=== PATIENT | male | born 1970 | race Caucasian/White ===

== ENCOUNTER 2020-06-18 06:32 | Day surgery (SDC) | payer OTHER, SELFPAY ==
[2020-06-11 13:51] VITALS: BMI 23.1
--- NOTE | 2020-06-17 10:23 | HO.ANESPROP2 ---
Documented by User: Elisa Barrios 06/17/20 10:25 HPI - Anesthesia Eval Consult details Narrative: 49yo M for Colonoscopy [facility] Past Medical History Medical History History of asthma Social History Social History Smoking Status: Never smoker Use of substances other than those prescribed or required for medical reasons: No Have you been hit, kicked, punched, or otherwise hurt by someone within the past year? If so, by whom?: No Advance Directives: Yes Advance Directives Information Provided: No Advance Directives on File: No Recently lost weight without trying: No Meds Allergies Allergy/AdvReac Type Severity Reaction Status Date / Time No Known Allergies Allergy Verified 06/11/20 13:50 Home Medications Medication Instructions Recorded Confirmed Type No Known Home Meds 06/11/20 06/11/20 History Exam Exam Date and Time: June 17, 2020 1023 Height,Weight and Vital Signs: Height 6 ft 2 in Weight 81.647 kg Pertinent Lab Results Pertinent Lab Results: Laboratory Tests 03/03/20 03/03/20 11:06 11:06 WBC 6.1 Hgb 16.9 Hct 50.6 Plt Count 214 Sodium 141 Potassium 4.7 Chloride 104 BUN 19 H Creatinine 0.90 Assessment and Plan Assessment Anesthesia Assessment: Chart Reviewed Documented by User: Marium Dowling 06/18/20 07:29 [facility] Past Medical History Medical History History of asthma Family History Family history of problems with anesthesia: No Surgical History History of Problems with Anesthesia: No Social History Social History Smoking Status: Never smoker Use of substances other than those prescribed or required for medical reasons: No Have you been hit, kicked, punched, or otherwise hurt by someone within the past year? If so, by whom?: No Advance Directives: Yes Advance Directives Information Provided: No Advance Directives on File: No Recently lost weight without trying: No Meds Allergies Allergy/AdvReac Type Severity Reaction Status Date / Time No Known Allergies Allergy Verified 06/11/20 13:50 Home Medications Medication Instructions Recorded Confirmed Type No Known Home Meds 06/11/20 06/11/20 History Exam Height,Weight and Vital Signs: Vital Signs Temp Pulse Resp BP Pulse Ox 06/18/20 06:47 97.9 F 99 18 152/99 H 99 Airway Mallampati Class: II TM Dist: >3cm Neck ROM: Full Loose/Missing/Broken Teeth: No Heart: CTAB Lungs: RRR Assessment and Plan Assessment Anesthesia Assessment: Anesthesia Plan Discussed and Chart Reviewed Final Anesthetic Review NPO: Yes ASA Class: II Final Preanesthetic Review: No Changes in Pt Med Stat, Meds/Allgs Chart Reviewed, Consent Obtained/Reviewed and Anes Risks/Benef Reviewed Patient Risk: Low Procedure Risk: Low Anesthetic Plan Anesthetic Plan: MAC: Disposition: Standard PACU
[2020-06-18 06:47] VITALS: BP 152/99; PULSE 99; RESP 18; TEMP 36.6; O2SAT 99
[2020-06-18] MEDS: Lactated Ringers 1,000 ML 100 ML IVCONT (07:04)
[2020-06-18 07:38] VITALS: BP 144/79; PULSE 73; RESP 16; TEMP 36.2; O2SAT 97
--- NOTE | 2020-06-18 07:50 | MHC.SHP ---
Pre-Procedural Eval Section B Chief Complaint: RECTAL BLEEDING Details of Present Illness: Colon cancer screening Relevant Family History (Specify if Yes): No Relevant Social History: None Present Medications: None Medical History: No relevant PMH History of Previous Operations: No relevant previous surgery Allergies: Allergies Allergy/AdvReac Type Severity Reaction Status Date / Time No Known Allergies Allergy Verified 06/11/20 13:50 Review of Systems Sugical H&P ROS: Negative: Constitution, Cardiovascular, Respiratory, Psychiatric, Gastrointestinal and Genitourinary Review of Systems Comment: No interim illnesses Exam Surgical H&P Exam: Normal: HEENT, Normal: Heart, Normal: Lungs, Normal: Extremities and Normal: Abdomen Exam Comment: Normal Plan Diagnosis/Plan: Unchanged Patient has been examined and remains a candidate for the planned procedure
--- NOTE | 2020-06-18 07:52 | PM.PROC ---
Brief Operative Note Date of procedure: 06/18/20 Pre-op diagnosis: Colon Cancer Screening--distant episode of rectal bleeding Post-op diagnosis: other (1+ Internal Hemorrhoids, Minor Diverticulosis-Sigmoid) Procedure: Colonoscopy Anesthesia: MAC (JYOTHI Escobedo) Surgeon: Ashleigh Person Estimated blood loss (mL): 0 Pathology: none sent Condition: stable Disposition: PACU
[2020-06-18 08:25] VITALS: BP 103/65; PULSE 81; RESP 12; TEMP 36.6; O2SAT 97
[2020-06-18 08:40] VITALS: BP 100/68; PULSE 76; RESP 16; O2SAT 97
[2020-06-18 08:55] VITALS: BP 107/67; PULSE 67; RESP 12; O2SAT 96
[2020-06-18 09:09] VITALS: BP 118/83; PULSE 81; RESP 18; TEMP 36.1; O2SAT 98
--- NOTE | 2020-06-18 09:39 | HO.POSTANES ---
Post Anesthesia Evaluation Post Anesthesia Evaluation Vital Signs: Vital Signs Temp Pulse Resp BP Pulse Ox 06/18/20 09:09 97.0 F 81 18 118/83 98 06/18/20 08:55 67 12 107/67 96 06/18/20 08:40 76 16 100/68 97 06/18/20 08:25 97.8 F 81 12 103/65 97 06/18/20 07:38 97.1 F 73 16 144/79 H 97 06/18/20 06:47 97.9 F 99 18 152/99 H 99 Anesthesia: Monitored Mental Status: Awake Pain Control: Satisfactory Nausea/Vomiting: None Hydration: Adequate Anesthesia-Related Issues: No Anes. Related Issues
--- NOTE | 2020-06-19 19:47 | OP_ITS ---
SURGEON: Ashleigh Person MD PREOPERATIVE DIAGNOSIS: Colon cancer screening, mild infrequent episodes of minor rectal bleeding. No known family history of colon cancer, polyps, etc. POSTOPERATIVE DIAGNOSIS: Minor diverticulosis localized to rectosigmoid, 1+ internal hemorrhoids. PROCEDURE PERFORMED: Colonoscopy. ESTIMATED BLOOD LOSS: No blood loss. COMPLICATIONS: No complications. ANESTHESIA: Monitored. ANESTHESIOLOGIST: Tr Yost CRNA. ASSISTANTS:NONE SPECIMENS: Specimens removed; none. CLAY SHOP SUPERVISOR: Dr. Person. FINDINGS: Digital rectal exam revealed prostate to be slightly firm. No nodularity was appreciated. Sphincter tone was normal. Video colonoscope was introduced without difficulty. It was navigated into the rectum and into the rectosigmoid. There were few small diverticula present. Scope continued through the proximal sigmoid, descending, transverse, ascending colon down into the cecal cap. The prep was excellent. Appendiceal orifice was seen. Ileocecal valve was well seen. No mucosal abnormalities were appreciated. Slow rotational views on withdrawal of the scope, again no mucosal lesions were seen. Once in the rectum, there were prominent internal hemorrhoidal vessels. Retroflex view in the rectum showed 1+ internal hemorrhoids. No active excoriation or friability noted. Anorectal verge was clear. PLAN: Current recommendation is to repeat asymptomatic screening in this patient is 10 years. The patient reminded that any intercurrent iron-deficiency anemia or episodes of rectal bleeding need to be evaluated at the time of their presentation. LINUX UNIX SYSTEM ADMINISTRATOR: No minister assistant. GRAFT OR IMPLANTS: No grafts or implants. CONDITION: Postprocedure, stable. Ashleigh Person MD MEN/MODL / [phone] [facility]
== END 2020-06-18 09:42 | disposition home or self-care (01) ==
PROVIDERS: Visit Provider Internal Medicine Gastroenterology
PROC: 0DJD8ZZ Inspection of Lower Intestinal Tract, Via Natural or Artificial Opening Endoscopic (ICD-10-PCS; CPT 45378; principal; 2020-06-18 07:30)
DX: Z12.11 Encounter for screening for malignant neoplasm of colon (principal); K57.30 Diverticulosis of large intestine without perforation or abscess without bleeding; K64.8 Other hemorrhoids
CPT/HCPCS: 45378; J2250

== ENCOUNTER 2020-08-02 12:22 | Outpatient (REF) | payer OTHER, SELFPAY ==
[2020-08-02 14:01] LABS: COVID-19 Test Negative (Negative)
== END 2020-08-02 12:23 | disposition home or self-care (01) ==
LOC: HO.EMPCOV 12:22
PROVIDERS: Visit Provider Internal Medicine
DX: Z20.828 Contact with and (suspected) exposure to other viral communicable diseases (principal)
CPT/HCPCS: 87635; C9803

== ENCOUNTER 2020-08-06 09:21 | Outpatient (REF) | payer OTHER, SELFPAY ==
[2020-08-06 09:43] LABS: COVID-19 Test Negative (Negative)
== END 2020-08-06 09:22 | disposition home or self-care (01) ==
LOC: HO.EMPCOV 09:21
PROVIDERS: Visit Provider Internal Medicine
DX: Z20.828 Contact with and (suspected) exposure to other viral communicable diseases (principal)
CPT/HCPCS: 87635; C9803

== ENCOUNTER 2020-10-20 12:58 | Outpatient (REF) | payer OTHER, SELFPAY ==
[2020-10-20 13:31] LABS: COVID-19 Test Negative (Negative)
== END 2020-10-20 12:59 | disposition home or self-care (01) ==
LOC: HO.EMPCOV 12:58
PROVIDERS: Visit Provider Internal Medicine
DX: Z20.822 Contact with and (suspected) exposure to COVID-19 (principal)
CPT/HCPCS: 36415; 87635; C9803

== ENCOUNTER 2020-10-26 07:59 | Outpatient (REF) | payer OTHER, SELFPAY ==
[2020-10-26 08:38] LABS: COVID-19 Test Negative (Negative); IDNOW Serial# 55D5AD1C
== END 2020-10-26 08:00 | disposition home or self-care (01) ==
LOC: HO.EMPCOV 07:59
PROVIDERS: Visit Provider Internal Medicine
DX: Z20.822 Contact with and (suspected) exposure to COVID-19 (principal)
CPT/HCPCS: 36415; 87635; C9803

== ENCOUNTER 2022-12-06 07:21 | Outpatient (REF) | payer OTHER, SELFPAY ==
[2022-12-06 08:22] LABS: Hemoglobin 16.4 g/dl (14.0-18.0); Mean Corpuscular HGB Conc 33.5 g/dl (31.0-36.0); Mean Corpuscular Hemoglobin 31.1 pg (27.0-33.0); Mean Corpuscular Volume 92.8 fL (80.0-98.0); Mean Platelet Volume 10.8 fL (9.4-12.4); Platelet Count 194 X10*3/uL (160-400); Red Blood Count 5.28 X10*6/uL (4.60-5.80); Red Cell Distribution Width 12.6 % (11.0-16.0); White Blood Count 5.4 X10*3/uL (4.8-10.8)
[2022-12-06 08:41] LABS: Alanine Aminotransferase 22 U/L (0-40); Albumin Level 4.3 g/dL (3.5-5.0); Alkaline Phosphatase 56 U/L (39-117); Anion Gap 15 (12-20); Aspartate Amino Transferase 20 U/L (5-37); Bilirubin Direct 0.2 mg/dL (0.0-0.5); Bilirubin Total 0.6 mg/dL (0.0-1.0); Blood Urea Nitrogen 23 mg/dL (9-16); Calcium 9.4 mg/dL (8.4-10.2); Carbon Dioxide 26 mmol/L (22-29); Chloride 107 mmol/L (96-108); Cholesterol 218 mg/dL; Estimated Glomerular Filt Rate > 60; Glucose Fasting 92 mg/dL (60-99); HDL Cholesterol 55 mg/dL; Potassium 4.6 mmol/L (3.3-5.1); Sodium 143 mmol/L (135-145); Total Protein 6.3 g/dL (6.5-8.0); Triglycerides 76 mg/dL
[2022-12-06 08:47] LABS: TSH reflex Free T4 2.17 uIU/mL (0.32-4.0)
[2022-12-08 02:40] LABS: LDL Cholesterol Direct 142 mg/dL (<100)
== END 2022-12-06 07:22 | disposition home or self-care (01) ==
LOC: HO.LAB 07:21
PROVIDERS: Visit Provider Obstetrics & Gynecology
DX: Z13.220 Encounter for screening for lipoid disorders (principal); Z20.2 Contact with and (suspected) exposure to infections with a predominantly sexual mode of transmission
CPT/HCPCS: 36415; 80048; 80076; 82465; 83718; 83721; 84443; 84478; 85027

== ENCOUNTER 2023-07-01 13:17 | Emergency (ER) | payer OTHER, SELFPAY ==
--- NOTE | ~2023-07-01 | CT_ITS ---
EXAMINATION: CT ABDOMEN AND PELVIS WITH CONTRAST CLINICAL INFORMATION: Rectal and pelvic pain with fevers. Retention. COMPARISON: None available. TECHNIQUE: Multidetector volumetric images were obtained from the superior aspect of the liver through the pubic symphysis following administration 85 mL of Omnipaque 350 intravenous contrast. Sagittal and coronal reformatted images were obtained on the technologist's workstation. Oral contrast: No This CT examination was performed using dose optimization techniques as appropriate, variously including the following: *Automated exposure control *Adjustment of mA and/or kV according to patient size (this includes techniques or standardized protocols for targeted exams where dose is matched to indication/reason for exam; i.e. extremities or head) *Use of iterative reconstruction technique DLP: 495 mGy-cm FINDINGS: LUNG BASES: There is bilateral compressive atelectasis. Heart size is normal. LIVER, GALLBLADDER, AND BILIARY TREE: The liver is normal in size, shape, and attenuation. There is a 4 mm hypodensity in the posterior segment right upper lobes. No additional lesions seen. The gallbladder is unremarkable with no evidence of radiopaque gallstones, gallbladder wall thickening, or obvious pericholecystic inflammatory changes. PANCREAS: Unremarkable. SPLEEN: Unremarkable. ADRENAL GLANDS: Unremarkable. KIDNEYS AND URETERS: The kidneys are normal in size, shape, and attenuation. No hydronephrosis, hydroureter, or calculi seen. No perinephric stranding. BLADDER: There is a Elizondo's catheter in the bladder with iatrogenic air. Mild bladder wall thickening is seen. GASTROINTESTINAL TRACT: Moderate stool, gas and diverticuli seen throughout the colon without distention. The small bowel loops is normal caliber. Appendix is not visualized with certainty. The stomach is distended with recently ingested food. ABDOMINAL WALL: Unremarkable. LYMPH NODES: No abnormal size lymph nodes and retroperitoneal mass. VASCULAR: Unremarkable. PELVIC VISCERA: The prostate gland is significantly enlarged extending into the base of bladder. No abnormality seen in the rectum and the perirectal space. OSSEOUS STRUCTURES: Mild degenerative disc changes L3-L4 disc: Mild ventral spondylosis L2-L3 and L3-L4 disc level. CT/CT abdomen pelvis w IV con IMPRESSION: Moderate to significant prostate enlargement with bladder wall thickening. There is a Elizondo's catheter in bladder with gas from catheter insertion. Colonic diverticulosis without diverticulitis. Probable small cyst right hepatic lobe with moderate to significant constipation without distention. Fleischner guidelines were followed.
[2023-07-01 13:21] VITALS: BP 140/80; PULSE 106; RESP 16; TEMP 36.8; O2SAT 98; BMI 25.4
--- NOTE | 2023-07-01 13:44 | ED.MALEGU ---
HPI - Male Genitourinary General Chief complaint: Urogenital-Male Stated complaint: urine problem Time Seen by Provider: 07/01/23 13:19 Source: patient Mode of arrival: ambulatory Limitations: no limitations History of Present Illness HPI Narrative: 52 yo male no sig PMH has had symptoms of decreased flow and hesistancy for a few years but no PSA done on Sunday it became worse with fevers > 38.4, myalgias and body aches. He put himself on levofloxacin 500mg daily starting sunday and took a dose today as well. He has not had a fever since yesterday. He has not been able to urinate much since 4am. His body otherwise feels better but he notes he has rectal pain and fullness/discomfort when sitting. He has never had a catheter before. MD Complaint: other (retention) Onset (ago): day(s) (2) Duration: progressively worsening Severity: severe Quality: aching and dull Relieving factors: urination Exacerbating factors: movement Context: other (chronic BPH symptoms left untreated) Associated symptoms: Reports fever Related Data Previous Rx's Medication Instructions Recorded levofloxacin 500 mg tablet 500 mg PO DAILY 4 weeks #28 tabs 07/01/23 tamsulosin 0.4 mg capsule 0.4 mg PO DAILY 10 days #10 caps 07/01/23 Allergies Allergy/AdvReac Type Severity Reaction Status Date / Time No Known Allergies Allergy Verified 06/11/20 13:50 Review of Systems Review of Systems: Constitutional : pos Fever, pos Chills ENT/Mouth : No sore throat Eyes: No Eye Pain, No Swelling, No Redness Cardiovascular : No Chest Pain, No SOB Respiratory : No Cough, No Sputum, No Wheezing Gastrointestinal : no Nausea, no Vomiting, No Diarrhea, positive abdominal pain Genitourinary : positive Dysuria, no urinary frequency, positive Hematuria, positive suprapubic pain, positive hesitancy Musculoskeletal : No joint pain, No Myalgias Skin : No Skin Lesions, No rash Neuro : No Weakness, No Numbness, No Headache Psych : No Anxiety/Panic, No Depression All other systems reviewed and are negative [facility] Past Medical History Attestation statement: The following information was validated with the patient. Medical History History of asthma Social History Social History (Updated 07/01/23 @ 13:53 by Taryn Fowler DO) Patient Tobacco Use Status: Never used Tobacco Smoked in Last 30 Days: No Use of substances other than those prescribed or required for medical reasons: No Advance Directives: No Physical Exam Vital Signs: Vital Signs: Last Vital Signs Temp 98.2 F 07/01/23 13:21 Pulse 106 H 07/01/23 13:21 Resp 16 07/01/23 13:21 BP 140/80 H 07/01/23 13:21 Pulse Ox 98 07/01/23 13:21 O2 Del Method Room Air 07/01/23 13:21 BMI result Body Mass Index 25.4 Appearance: Alert. Oriented X3. No acute distress. Eyes: Pupils equal, round and reactive to light. ENT: Pharynx normal. Neck: Normal inspection. Neck supple. CVS: Normal heart rate and rhythm. Pulses normal. Respiratory: No respiratory distress. Breath sounds normal. Abdomen: Soft and moderate ttp along suprapubic area Skin: Skin warm and dry. Normal skin color. Normal skin turgor. Extremities: No lower extremity edema. No calf ttp Neuro: Oriented X 3. No motor deficit. No sensory deficit. Course Course Course Narrative: signed out to Dr. Moreno pending CT scan Reevaluation(s) Reevaluation #1: discussed with Dr. Javed - 2 weeks catheter, flomax, 2 weeks of antibiotics. Medications Administered Discontinued Medications Generic Name Dose Route Start Last Admin Trade Name Freq PRN Reason Stop Dose Admin Sodium Chloride 1,000 mls @ 999 mls/hr 07/01/23 13:45 07/01/23 15:51 Ns IV 07/01/23 14:45 Infused .Q1H1M JOY Infusion Iohexol 80 ml 07/01/23 14:44 07/01/23 14:44 Iohexol 350 Mg/Ml 100 Ml Infus..Btl IV 07/01/23 14:45 80 ml ONCE ONE Administration Lidocaine HCl 10 ml 07/01/23 13:25 07/01/23 13:58 Lidocaine Hcl 2 % Urojet 10 Ml Jel.Pf.Gabe TOPICAL 07/01/23 13:26 10 ml ONCE ONE Administration Medical Decision Making Medical Decision Making MDM Narrative: 52 yo male with PMH of untreated BPH symptoms here with c/o retention since 4am and fevers since Sunday and dysuria - at this time no fevers since yesterday and he took oral levofloxacin this AM I am going to obtain labs, cultures and CT scan to look for mass/prostatic abscess. Possible discussion with urology as well. Differential Diagnosis Differential Diagnoses: The differential diagnosis associated with the presentation includes BPH, mass, UTI, prostatitis, prostatic abscess Admission/Observation Consideration of admission/observation: Escalation of care including admission/observation considered not toxic, tolerating PO can be managed as outpatient Consult Healthcare Provider Management of the patient was discussed with: Targeting Acquisition Officer (urology Dr. Javed ) Lab Data MDM Lab Attestation statement: I reviewed the patient's lab results. 07/01/23 13:56 07/01/23 13:56 Labs: Lab Results 07/01/23 07/01/23 07/01/23 Range/Units 13:56 14:30 15:36 WBC 7.3 (4.8-10.8) X10*3/uL RBC 4.65 (4.60-5.80) X10*6/uL Hgb 14.6 (14.0-18.0) g/dl Hct 42.1 (42.0-52.0) % MCV 90.5 (80.0-98.0) fL MCH 31.4 (27.0-33.0) pg MCHC 34.7 (31.0-36.0) g/dl RDW 13.1 (11.0-16.0) % Plt Count 115 L D (160-400) X10*3/uL MPV 10.8 (9.4-12.4) fL Immature Gran % (Auto) 0.7 H (0.0-0.4) % Neut % (Auto) 84.1 H (45-73) % Lymph % (Auto) 5.3 L (20-40) % Yancey % (Auto) 9.8 (2-11) % Eos % (Auto) 0.0 (0-4) % Baso % (Auto) 0.1 (0-2) % Lymph # (Auto) 0.4 L (1.2-4.9) X10*3/uL Yancey # (Auto) 0.7 (0.1-1.2) X10*3/uL Eos # (Auto) 0.0 (0.0-0.4) X10*3/uL Baso # (Auto) 0.0 (0.0-0.2) X10*3/uL Abs Immat Gran (auto) 0.05 H (0.00-0.03) X10*3/uL Absolute Neuts (auto) 6.2 (2.0-8.3) x10*3/uL Absolute Nucleated RBC 0.000 (0.0-0.012) X10*3/uL Nucleated RBC % (auto) 0.0 (0.0-0.2) /100WBC Sodium 133 L (135-145) mmol/L Potassium 3.5 D (3.3-5.1) mmol/L Chloride 100 (96-108) mmol/L Carbon Dioxide 23 (22-29) mmol/L Anion Gap 14 (12-20) BUN 17 H (9-16) mg/dL Creatinine 0.96 (0.5-1.4) mg/dL Estim Creat Clear Calc 100.5 Estimated GFR > 60 Random Glucose 123 H (60-115) mg/dL Lactic Acid 1.0 (0.5-2.0) mmol/L Calcium 9.5 (8.4-10.2) mg/dL Magnesium 1.6 (1.6-2.6) mg/dL Total Bilirubin 0.7 (0.0-1.0) mg/dL Direct Bilirubin 0.3 (0.0-0.5) mg/dL AST 62 H (5-37) U/L ALT 79 H (0-40) U/L Alkaline Phosphatase 58 (39-117) U/L Total Protein 6.7 (6.5-8.0) g/dL Albumin 3.8 (3.5-5.0) g/dL PSA Screen 82.49 H (<0.05-4.0) ng/mL Urine Color Yellow Urine Appearance Clear Urine pH 6.0 (5.0-9.0) Ur Specific [place] 1.015 (1.005-1.025) Urine Protein Trace (Neg-Trace) mg/dL Urine Glucose (UA) Negative (Negative) mg/dL Urine Ketones Trace (Negative) mg/dL Urine Blood Large (3+) H (Negative) Urine Nitrite Negative (Negative) Ur Leukocyte Esterase Negative (Negative) Urine RBC >20 H (0-2) /HPF Urine WBC 0-5 (0-5) /HPF Ur Squamous Epith Cells 0-2 (0-2) /HPF Urine Bacteria None Seen (None Seen) Hyaline Casts 0-2 (0-2) /LPF COVID-19 (JOSH) Negative (Negative) COVID-19 Clin Com See Note Independent Interpretation I performed an independent interpretation of an: CT Scan (no prostatic abscess but enlarged) Radiology Impression Discussion of test interpretation with radiology: I have reviewed the radiologist's reading. Independent Historian Clinical information obtained from an independent historian. History obtained from or confirmed by: Spouse Prescription Management I considered prescription management with: Antibiotic and Other Discharge Plan Discharge Clinical Impression: Acute retention of urine, Acute prostatitis, Elevated liver enzymes Patient Disposition: Home, Self-Care Instructions: Prostatitis (ED), Urinary Retention in Men (ED), Elizondo Catheter Placement and Care (ED) Additional Instructions: remember no working out while on levofloxacin and 5 days after. repeat CBC and LFTs in 2 days. return for fevers, vomiting, worsening pain, clogged catheter. avoid aspirin at this time. while on tamsulosin make sure you are not feeling faint or dizzy. call Dr. Javed's office tomorrow he is expecting you to call. Prescriptions: New levofloxacin 500 mg tablet 500 mg PO DAILY 28 Days Qty: 28 0RF tamsulosin 0.4 mg capsule 0.4 mg PO DAILY 10 Days Qty: 10 0RF Referrals: Dakotah Javed MD [Physician] - (call tomorrow) Stand Alone Forms: Work/School Release
[2023-07-01] MEDS: 0.9 % Sodium Chloride 1,000 ML 999 ML IV (13:58)
[2023-07-01] MEDS: Lidocaine HCl 2 % Urojet 10 ML JEL.PF.APP TOPICAL (13:58)
[2023-07-01 14:03] LABS: Basophils Percent Auto 0.1 % (0-2); PLT CLUMP 1; Red Cell Distribution Width 13.1 % (11.0-16.0); SCAN SMEAR FLAG 1
[2023-07-01 14:05] LABS: Hematocrit 42.1 % (42.0-52.0); Hemoglobin 14.6 g/dl (14.0-18.0); Imm Gran Abs Auto 0.05 X10*3/uL (0.00-0.03); Imm Gran Pct Auto 0.7 % (0.0-0.4); Lymphocytes Absolute Auto 0.4 X10*3/uL (1.2-4.9); Lymphocytes Percent Auto 5.3 % (20-40); Mean Corpuscular HGB Conc 34.7 g/dl (31.0-36.0); Mean Corpuscular Hemoglobin 31.4 pg (27.0-33.0); Mean Corpuscular Volume 90.5 fL (80.0-98.0); Mean Platelet Volume 10.8 fL (9.4-12.4); Monocytes Absolute Auto 0.7 X10*3/uL (0.1-1.2); Monocytes Percent Auto 9.8 % (2-11); Neutrophils Absolute Auto 6.2 x10*3/uL (2.0-8.3); Neutrophils Percent Auto 84.1 % (45-73); Red Blood Count 4.65 X10*6/uL (4.60-5.80)
[2023-07-01 14:06] LABS: MANUAL DIFF FLAG NO; Platelet Count 115 X10*3/uL (160-400); White Blood Count 7.3 X10*3/uL (4.8-10.8)
--- NOTE | 2023-07-01 14:12 | PC.NURSE ---
Pt arrived with complaints of Urinary retention. Reporting he has been on Levoquin for one week. He is having urinary retention and inability to void w/ straining. Pt reporting he has been having enlarged prostate for 3 years but has not gone to the doctors. Mcelroy inserted, 800cc removed after placing mcelroy, clear yellow. IVplaced, labs obtained, IVF started per order. Awaiting CT scan at this time.
[2023-07-01 14:19] LABS: Alanine Aminotransferase 79 U/L (0-40); Albumin Level 3.8 g/dL (3.5-5.0); Alkaline Phosphatase 58 U/L (39-117); Anion Gap 14 (12-20); Aspartate Amino Transferase 62 U/L (5-37); Bilirubin Direct 0.3 mg/dL (0.0-0.5); Bilirubin Total 0.7 mg/dL (0.0-1.0); Blood Urea Nitrogen 17 mg/dL (9-16); Calcium 9.5 mg/dL (8.4-10.2); Carbon Dioxide 23 mmol/L (22-29); Chloride 100 mmol/L (96-108); Creatinine Clr Calc Pharmacy 100.5; Estimated Glomerular Filt Rate > 60; Glucose Random 123 mg/dL (60-115); Magnesium 1.6 mg/dL (1.6-2.6); Potassium 3.5 mmol/L (3.3-5.1); Sodium 133 mmol/L (135-145); Total Protein 6.7 g/dL (6.5-8.0)
[2023-07-01 14:37] LABS: Appearance Urine Clear; Color Urine Yellow; Glucose Urine UA Negative (Negative); Leukocyte Esterase Urine Negative (Negative); Nitrite Urine Negative (Negative); Specific Gravity - Urine 1.015 (1.005-1.025); UMIC TRIGGER UACC YES; Urine Blood Large (3+) (Negative); Urine Ketones Trace mg/dL (Negative); Urine Protein Trace mg/dL (Neg-Trace)
[2023-07-01 14:39] LABS: Prostate Specific Antigen Scr 82.49 ng/mL (<0.05-4.0)
[2023-07-01 14:42] LABS: Bacteria Urine None Seen (None Seen); Hyaline Casts Urine 0-2 /LPF (0-2); RBC Urine >20 /HPF (0-2); Squamous Epithelial Cell Urine 0-2 /HPF (0-2); WBC Urine 0-5 /HPF (0-5)
[2023-07-01] MEDS: iohexoL 350 MG/ML 100 ML INFUS..BTL 80 ML IV (14:44)
[2023-07-01 16:01] LABS: COVID-19 Test Negative (Negative); IDNOW Serial# 08D9AD1C
== END 2023-07-01 17:13 | disposition home or self-care (01) ==
PROVIDERS: Emergency Provider Emergency Medicine
DX: R33.9 Retention of urine, unspecified (principal); N41.0 Acute prostatitis; R74.8 Abnormal levels of other serum enzymes; R50.9 Fever, unspecified; Z11.52 Encounter for screening for COVID-19; N40.0 Benign prostatic hyperplasia without lower urinary tract symptoms
CPT/HCPCS: 36415; 51702; 51798; 74177; 80048; 80076; 81001; 83605; 83735; 84153; 85025; 87040; 87635; 96360; 96361; 99284; 99285; Q9967

== ENCOUNTER 2023-07-13 08:49 | Outpatient (AMB) | payer OTHER, SELFPAY ==
--- NOTE | 2023-07-13 09:18 | MHC.OFFVIS ---
Intake Intake Visit Reasons: Voiding trial Intake Note: Patient is Present for Follow Up [place] Trial Urology Medication: Finasteride, Tamsulosin Antibiotic Allergies:None Blood Thinners:None Pharmacy: [facility] PVR: Allergies No Known Allergies Allergy (Verified 07/13/23 09:19) Medication List - Last Reconciled 07/13/23 by Dakotah Javed MD finasteride 5 mg PO DAILY 90 days levofloxacin 500 mg PO DAILY 4 weeks tamsulosin 0.4 mg PO BEDTIME 90 days HPI HPI Comments History of Present Illness Details Sunday is a very pleasant male. He is seen for the following urologic conditions - prostatitis - outlet obstruction - elevated PSA Voiding trial Successful Continue finasteride and tamsulosin 6 week follow-up PVR with PSA Urinary retention Episode of urinary retention 07/02 Likely trigger prostatitis PSA 07/02 82 Imaging 07/02 CT Moderate to significant prostate enlargement with bladder wall thickening Responded to combination tamsulosin and finasteride PFSH Medical History History of asthma Social History Patient Tobacco Use Status: Never used Tobacco Review of Systems Const Denies chills and Denies fever(s) Card Reports no additional complaints and Denies syncope Resp Denies cough GI Denies abdominal pain and Denies heartburn Reports as per HPI and Denies change in libido Neuro Denies syncope Psych Denies change in libido Endo Denies change in libido Physical Exam Const General: cooperative, healthy appearing, comfortable and no acute distress Orientation/consciousness: patient oriented x3 HEENT Face and sinus: Yes normal facial exam Mouth: moist mucous membranes Neck Neck: Yes normal visual inspection, Yes full ROM and Yes trachea midline Chest Chest palpation & inspection: normal inspection of the chest Resp Effort & Inspection: normal respiratory effort, able to speak in complete sentences and no respiratory distress GI Inspection: Yes normal to inspection Back/Spine/Pelvis Cervical Spine: normal cervical lordosis Thoracic/Lumbar Spine: thoracic and lumbar spine normal to inspection Skin General skin exam: no rashes or lesions noted Neuro General: patient oriented x3, gait normal, tone normal and moves all extremities Extrem General: Yes normal to inspection and Yes capillary refill normal Office Procedures Bladder/Catheter Procedure Details: Voiding trial 200 cc placed Catheter removed Minimal residual [id number]-[id number] of Bladder Procedure code (CPT) selection complete Assessment & Plan Assessment & Plan (1) Prostatitis: Code(s): N41.9 - Inflammatory disease of prostate, unspecified (2) Elevated PSA: Code(s): R97.20 - Elevated prostate specific antigen [PSA] (3) Bladder outlet obstruction: Code(s): N32.0 - Bladder-neck obstruction (4) Urinary retention with incomplete bladder emptying: Code(s): R33.9 - Retention of urine, unspecified Plan Six week follow-up PSA Orders: Orders Prostate Specific Antigen 6 Weeks R97.20 - Elevated prostate specific antigen [PSA] Patient Instructions: Imaging studies, laboratory and physical exam results were discussed and reviewed in detail. No major barriers to patient understanding were identified. An opportunity to ask questions regarding the treatment plan was provided. All questions were answered. The patient expressed understanding and agreement with the above treatment plan. The patient is aware they should contact our office by phone for worsening of their current condition or the appearance of new urologic symptoms. Compliance is encouraged with any medications and followup testing that is ordered. It is a privilege to participate in the urologic care of your patient. If you have any questions or concerns regarding treatment for the above conditions, or other urologic issues, please do not hesitate to contact me. The office telephone contact is [phone]. This note is constructed using voice recognition software. While every effort has been made to ensure accuracy senior business development manager errors may have been included. Yours sincerely, Dr Dakotah Javed MD, [facility] Urology Providers of Expert, Compassionate Care for the Genitourinary System Coding Level of Care Code Est Pt Level 4 (04847) Diagnoses Prostatitis N41.9 Elevated PSA R97.20 Bladder outlet obstruction N32.0 Urinary retention with incomplete bladder emptying R33.9 CPT Codes Bladder/Catheter Procedure - CPT: 05967-Rxfnilduru of Bladder ([id number])
== END 2023-07-13 10:04 | disposition home or self-care (01) ==
PROVIDERS: Visit Provider Urology
DX: N41.9 Inflammatory disease of prostate, unspecified (principal); R97.20 Elevated prostate specific antigen [PSA]; N32.0 Bladder-neck obstruction; R33.9 Retention of urine, unspecified
CPT/HCPCS: 51700; 99214

== ENCOUNTER → 2023-07-13 08:49 | Outpatient (BNVA) | payer OTHER, SELFPAY | PROVIDERS: Visit Provider Urology | DX: N41.9 Inflammatory disease of prostate, unspecified (principal); R97.20 Elevated prostate specific antigen [PSA]; N32.0 Bladder-neck obstruction; R33.9 Retention of urine, unspecified | CPT/HCPCS: 51700 ==

== ENCOUNTER 2023-08-28 09:34 | Outpatient (REF) | payer OTHER, SELFPAY ==
[2023-08-28 10:46] LABS: Prostate Specific Antigen 7.12 ng/mL (<0.05-4.0)
== END 2023-08-28 09:35 | disposition home or self-care (01) ==
LOC: HO.LAB 09:34
PROVIDERS: Visit Provider Urology
DX: Z12.5 Encounter for screening for malignant neoplasm of prostate (principal); R97.20 Elevated prostate specific antigen [PSA]
CPT/HCPCS: 36415; 84153

== ENCOUNTER 2023-08-31 08:29 | Outpatient (AMB) | payer OTHER, SELFPAY ==
--- NOTE | 2023-08-31 08:33 | A.OFFVIS_ITS ---
Intake Intake Visit Reasons: 6w/PSA/PVR(psa?) Intake Note: Patient is Present for Follow Up Urology Medication: Finasteride, Tamsulosin Antibiotic Allergies:None Blood Thinners: None PVR: 11 Allergies No Known Allergies Allergy (Verified 08/31/23 08:35) Medication List - Last Reconciled 08/31/23 by Dakotah Javed MD finasteride 5 mg PO DAILY 90 days levofloxacin 500 mg PO DAILY 4 weeks tamsulosin 0.4 mg PO BEDTIME 90 days HPI HPI Comments History of Present Illness Details Sunday is a very pleasant male. He is seen for the following urologic conditions - prostatitis - outlet obstruction - elevated PSA Continue combination medication PSA has fallen substantially Discussed CT scan which showed enlarged prostate with bladder wall thickening Three month follow-up PSA with bladder ultrasound Discussed possible procedures Urinary retention Episode of urinary retention 07/02 Likely trigger prostatitis PSA 07/02 82, 09/01 7.1 Imaging 07/02 CT Moderate to significant prostate enlargement with bladder wall thickening Responded to combination tamsulosin and finasteride PFSH Medical History History of asthma Social History Patient Tobacco Use Status: Never used Tobacco Review of Systems Const Denies chills and Denies fever(s) Card Reports no additional complaints and Denies syncope Resp Denies cough GI Denies abdominal pain and Denies heartburn Reports as per HPI and Denies change in libido Neuro Denies syncope Psych Denies change in libido Endo Denies change in libido Physical Exam Const General: cooperative, healthy appearing, comfortable and no acute distress Orientation/consciousness: patient oriented x3 HEENT Face and sinus: Yes normal facial exam Mouth: moist mucous membranes Neck Neck: Yes normal visual inspection, Yes full ROM and Yes trachea midline Chest Chest palpation & inspection: normal inspection of the chest Resp Effort & Inspection: normal respiratory effort, able to speak in complete sentences and no respiratory distress GI Inspection: Yes normal to inspection Back/Spine/Pelvis Cervical Spine: normal cervical lordosis Thoracic/Lumbar Spine: thoracic and lumbar spine normal to inspection Skin General skin exam: no rashes or lesions noted Neuro General: patient oriented x3, gait normal, tone normal and moves all extremities Extrem General: Yes normal to inspection and Yes capillary refill normal Office Procedures Post Void Residual Post Residual Void Post Void Residual (PVR): 11 14767-Ejkq Void Residual by ultrasound Assessment & Plan Assessment & Plan (1) Prostatitis: Code(s): N41.9 - Inflammatory disease of prostate, unspecified (2) Elevated PSA: Code(s): R97.20 - Elevated prostate specific antigen [PSA] (3) Bladder outlet obstruction: Code(s): N32.0 - Bladder-neck obstruction Plan Three month follow-up ultrasound Orders: Orders AMB Post Void Residual by ultrasound Today R33.9 - Retention of urine, unspecified PSA,Total (Free>4and<10) 3 Months N32.0 - Bladder-neck obstruction US bladder 3 Months N32.0 - Bladder-neck obstruction Patient Instructions: Imaging studies, laboratory and physical exam results were discussed and reviewed in detail. No major barriers to patient understanding were identified. An opportunity to ask questions regarding the treatment plan was provided. All questions were answered. The patient expressed understanding and agreement with the above treatment plan. The patient is aware they should contact our office by phone for worsening of their current condition or the appearance of new urologic symptoms. Compliance is encouraged with any medications and followup testing that is ordered. It is a privilege to participate in the urologic care of your patient. If you have any questions or concerns regarding treatment for the above conditions, or other urologic issues, please do not hesitate to contact me. The office telephone contact is [phone]. This note is constructed using voice recognition software. While every effort has been made to ensure accuracy rope making machine operator errors may have been included. Yours sincerely, Dr Dakotah Javed MD, [facility] - Urology Providers of Expert, Compassionate Care for the Genitourinary System Coding Level of Care Code Est Pt Level 3 (18570) Diagnoses Prostatitis N41.9 Elevated PSA R97.20 Bladder outlet obstruction N32.0 CPT Codes Post Residual Void - PVR CPT Code: 75928-Cfnr Void Residual by ultrasound ([id number])
== END 2023-08-31 09:10 | disposition home or self-care (01) ==
PROVIDERS: Visit Provider Urology
DX: N41.9 Inflammatory disease of prostate, unspecified (principal); R97.20 Elevated prostate specific antigen [PSA]; N32.0 Bladder-neck obstruction
CPT/HCPCS: 99213

== ENCOUNTER → 2023-08-31 08:29 | Outpatient (BNVA) | payer OTHER, SELFPAY | PROVIDERS: Visit Provider Urology | DX: N41.9 Inflammatory disease of prostate, unspecified (principal); R97.20 Elevated prostate specific antigen [PSA]; N32.0 Bladder-neck obstruction | CPT/HCPCS: 51798 ==

== ENCOUNTER 2023-11-23 14:49 | Outpatient (REF) | payer OTHER, SELFPAY ==
--- NOTE | ~2023-11-23 | US_ITS ---
EXAMINATION: US PELVIS LIMITED (BLADDER) CLINICAL INFORMATION: Bladder neck obstruction. COMPARISON: CT abdomen and pelvis 07/01/2023. TECHNIQUE: Real-time imaging of the bladder. FINDINGS: BLADDER: Moderate diffuse borderline thickening, irregularity and possible trabeculation of the bladder wall. Bilateral ureteral jets are demonstrated. Prevoid bladder volume is 156.1 mL. Postvoid bladder volume is 16.6 mL. ADDITIONAL FINDINGS: Enlarged prostate with prostate volume 58.1 mL. Prostate appears heterogeneous. US/US bladder IMPRESSION: 1. Moderate diffuse borderline thickening, irregularity and possible trabeculation of the bladder wall. 2. Enlarged prostate with prostate volume 58.1 mL. Prostate appears heterogeneous.
== END 2023-11-23 14:50 | disposition home or self-care (01) ==
LOC: HO.US 14:49
PROVIDERS: Visit Provider Urology
DX: N32.0 Bladder-neck obstruction (principal)
CPT/HCPCS: 76857

== ENCOUNTER 2023-12-12 06:38 | Outpatient (REF) | payer OTHER, SELFPAY ==
[2023-12-12 07:46] LABS: Alanine Aminotransferase 29 U/L (0-40); Aspartate Amino Transferase 21 U/L (5-37); Cholesterol 208 mg/dL (<200); Estimated Glomerular Filt Rate > 60; Glucose Fasting 97 mg/dL (60-99); HDL Cholesterol 58 mg/dL (>40)
[2023-12-12 09:48] LABS: PSA,Total (Free>4and<10) 4.74 ng/mL (0.00-4.00)
[2023-12-12 13:12] LABS: Triglycerides 89 mg/dL (<150)
[2023-12-13 17:58] LABS: LDL Cholesterol Direct 128 mg/dL (<100)
[2023-12-17 11:43] LABS: Free Prostate Spec Ag 0.3 ng/mL; Percent Free Prostate Spec Ag 8 % (calc) (>25)
== END 2023-12-12 06:39 | disposition home or self-care (01) ==
LOC: HO.LAB 06:38
PROVIDERS: Absent Provider Urology; Visit Provider Obstetrics & Gynecology
DX: Z12.5 Encounter for screening for malignant neoplasm of prostate (principal); N32.0 Bladder-neck obstruction
CPT/HCPCS: 36415; 82465; 82565; 82947; 83718; 83721; 84153; 84154; 84450; 84460; 84478

== ENCOUNTER 2023-12-13 11:38 | Outpatient (AMB) | payer OTHER, SELFPAY ==
--- NOTE | 2023-12-13 11:47 | A.OFFVIS_ITS ---
Intake Intake Visit Reasons: 3m/US/PSA(psa?)Confirmed Intake Note: Patient is Present for Follow Up Urology Medication: Finasteride, Tamsulosin Antibiotic Allergies:None Blood Thinners: None PVR: 21 Allergies No Known Allergies Allergy (Verified 12/13/23 11:47) Medication List - Last Reconciled 12/13/23 by Dakotah Javed MD finasteride 5 mg PO DAILY 90 days levofloxacin 500 mg PO DAILY 4 weeks tamsulosin 0.4 mg PO BEDTIME 90 days HPI HPI Comments History of Present Illness Details Sunday is a very pleasant male. He is seen for the following urologic conditions - prostatitis - outlet obstruction - elevated PSA Continue combination medication PVR 20 cc PSA 4.6 Ultrasound 60 g prostate, effective emptying Will check in 6 months. Target PSA based on size and use of finasteride is 3.5. He understands likely will require prostate procedure at some point in future. Effective bladder emptying and good stream. Does have storage symptoms was then urgency and nocturia. Urinary retention Episode of urinary retention 07/02 Likely trigger prostatitis PSA 07/02 82, 09/01 7.1, 12/01 4.7 Imaging 07/02 CT Moderate to significant prostate enlargement with bladder wall thickening Responded to combination tamsulosin and finasteride [facility] Medical History History of asthma Social History Patient Tobacco Use Status: Never used Tobacco Review of Systems Const Denies chills and Denies fever(s) Card Reports no additional complaints and Denies syncope Resp Denies cough GI Denies abdominal pain and Denies heartburn Reports as per HPI and Denies change in libido Neuro Denies syncope Psych Denies change in libido Endo Denies change in libido Physical Exam Const General: cooperative, healthy appearing, comfortable and no acute distress Orientation/consciousness: patient oriented x3 HEENT Face and sinus: Yes normal facial exam Mouth: moist mucous membranes Neck Neck: Yes normal visual inspection, Yes full ROM and Yes trachea midline Chest Chest palpation & inspection: normal inspection of the chest Resp Effort & Inspection: normal respiratory effort, able to speak in complete sentences and no respiratory distress GI Inspection: Yes normal to inspection Back/Spine/Pelvis Cervical Spine: normal cervical lordosis Thoracic/Lumbar Spine: thoracic and lumbar spine normal to inspection Skin General skin exam: no rashes or lesions noted Neuro General: patient oriented x3, gait normal, tone normal and moves all extremities Extrem General: Yes normal to inspection and Yes capillary refill normal Office Procedures Post Void Residual Post Residual Void Post Void Residual (PVR): 21 [id number] Void Residual by ultrasound Assessment & Plan Assessment & Plan (1) Elevated PSA: Code(s): R97.20 - Elevated prostate specific antigen [PSA] (2) Bladder outlet obstruction: Code(s): N32.0 - Bladder-neck obstruction Plan Follow-up six-month PSA tele Orders: Orders AMB Post Void Residual by ultrasound Today R33.9 - Retention of urine, unspecified PSA,Total (Free>4and<10) 6 Months R97.20 - Elevated prostate specific antigen [PSA] Patient Instructions: Imaging studies, laboratory and physical exam results were discussed and reviewed in detail. No major barriers to patient understanding were identified. An opportunity to ask questions regarding the treatment plan was provided. All questions were answered. The patient expressed understanding and agreement with the above treatment plan. The patient is aware they should contact our office by phone for worsening of their current condition or the appearance of new urologic symptoms. Compliance is encouraged with any medications and followup testing that is ordered. It is a privilege to participate in the urologic care of your patient. If you have any questions or concerns regarding treatment for the above conditions, or other urologic issues, please do not hesitate to contact me. The office telephone contact is [phone]. This note is constructed using voice recognition software. While every effort has been made to ensure accuracy park worker supervisor errors may have been included. Yours sincerely, Dr Dakotah Javed MD, [facility] - Urology Providers of Expert, Compassionate Care for the Genitourinary System Coding Level of Care Code Est Pt Level 3 (18243) Diagnoses Elevated PSA R97.20 Bladder outlet obstruction N32.0 CPT Codes Post Residual Void - PVR CPT Code: 52338-Yaei Void Residual by ultrasound ([id number])
== END 2023-12-13 12:26 | disposition home or self-care (01) ==
PROVIDERS: Visit Provider Urology
DX: R97.20 Elevated prostate specific antigen [PSA] (principal); N32.0 Bladder-neck obstruction
CPT/HCPCS: 99213

== ENCOUNTER → 2023-12-13 11:38 | Outpatient (BNVA) | payer OTHER, SELFPAY | PROVIDERS: Visit Provider Urology | DX: R97.20 Elevated prostate specific antigen [PSA] (principal); N32.0 Bladder-neck obstruction; R33.9 Retention of urine, unspecified | CPT/HCPCS: 51798 ==

== ENCOUNTER 2024-02-21 03:34 | Emergency (ER) | payer OTHER, SELFPAY ==
--- NOTE | 2024-02-21 | ECG_ITS ---
Test Reason : DIZZINESS Blood Pressure : / mmHG Vent. Rate : 071 BPM Atrial Rate : 071 BPM P-R Int : 180 ms QRS Dur : 128 ms QT Int : 418 ms P-R-T Axes : 080 106 076 degrees QTc Int : 454 ms Normal sinus rhythm Rightward axis Non-specific intra-ventricular conduction block Minimal voltage criteria for LVH, may be normal variant ( Scot product ) Abnormal ECG No previous ECGs available Referred By: Generic ED Physician Electronically Signed By:REYNA EMMANUEL
--- NOTE | ~2024-02-21 | CT_ITS ---
EXAMINATION: CT ANGIOGRAM NECK CT ANGIOGRAM HEAD CLINICAL INFORMATION: Dizziness. COMPARISON: None available. TECHNIQUE: CT angiography of the head and neck performed after the intravenous administration of 85 mL Omnipaque 350. MIP images also obtained. The degree of stenosis determined by NASCET criteria. This CT examination was performed using dose optimization techniques as appropriate, variously including the following: *Automated exposure control *Adjustment of mA and/or kV according to patient size (this includes techniques or standardized protocols for targeted exams where dose is matched to indication/reason for exam; i.e. extremities or head) *Use of iterative reconstruction technique DLP: 2246 mGy-cm FINDINGS: CT HEAD: The lateral, third and fourth ventricles are normally outlined. The cortical sulci and basal cisterns are normally outlined as well. There is no acute territorial defect, hemorrhage or midline shift. The extra-axial spaces are unremarkable. Calvarium/scalp: Intact. Maxillofacial sinuses and mastoids: Clear as visualized. CTA NECK: The visualized aortic arch is normal in appearance. A three-vessel aortic arch branch pattern is noted. The aortic arch branch vessels are normal in appearance. The common carotid, internal and external carotid arteries are patent. The left vertebral artery is dominant. Both vertebral arteries are patent throughout. The visualized upper lung snider are clear. The osseous structures are unremarkable. CTA HEAD: Mild atherosclerotic plaque of the intracranial internal carotid artery without significant narrowing. The middle cerebral and anterior cerebral arteries are patent. The distal vertebral arteries, basilar artery and branches as well as posterior cerebral arteries are normal in appearance without significant narrowing. There is no evidence for aneurysm. CT/CT angio head neck IMPRESSION: 1. No acute intracranial abnormality. 2. No large vessel occlusion, aneurysm or dissection. 3. Mild atherosclerotic plaque of the intracranial internal carotid arteries without significant narrowing.
--- NOTE | ~2024-02-21 | MR_ITS ---
MR BRAIN WITHOUT CONTRAST CLINICAL INFORMATION: Dizziness. COMPARISON: CTA head and neck 02/21/2024. TECHNIQUE: MRI of the brain was obtained using routine sequences without contrast. FINDINGS: There is no hydrocephalus, extra-axial surface collection, or herniation. There is mild chronic microangiopathy. The major flow voids at the skull base are preserved. There is no acute infarct on diffusion-weighted imaging. There is no intracranial hemorrhage on the gradient recalled echo acquisition. The midline structures are normal. The cerebellar tonsils are normally positioned. The cerebellum and brainstem are normal. The craniocervical junction is normal. Osseous marrow signal intensity is homogenous. The visualized soft tissues are unremarkable. MR/MR head/brain wo con IMPRESSION: - No acute intracranial findings. No acute infarcts. - There is mild chronic microangiopathy.
[2024-02-21 03:40] VITALS: BP 136/71; PULSE 75; RESP 20; TEMP 36.6; O2SAT 100; BMI 22.7
[2024-02-21 04:00] LABS: Basophils Percent Auto 0.4 % (0-2); Eosinophils Absolute Auto 0.1 X10*3/uL (0.0-0.4); Eosinophils Percent Auto 2.6 % (0-4); Hematocrit 44.9 % (42.0-52.0); Hemoglobin 15.6 g/dl (14.0-18.0); Imm Gran Abs Auto 0.01 X10*3/uL (0.00-0.03); Imm Gran Pct Auto 0.2 % (0.0-0.4); Lymphocytes Absolute Auto 2.1 X10*3/uL (1.2-4.9); MANUAL DIFF FLAG NO; Mean Corpuscular HGB Conc 34.7 g/dl (31.0-36.0); Mean Corpuscular Volume 89.3 fL (80.0-98.0); Mean Platelet Volume 10.3 fL (9.4-12.4); Monocytes Absolute Auto 0.4 X10*3/uL (0.1-1.2); Monocytes Percent Auto 8.5 % (2-11); Neutrophils Absolute Auto 2.3 x10*3/uL (2.0-8.3); Neutrophils Percent Auto 46.3 % (45-73); Platelet Count 194 X10*3/uL (160-400); Red Blood Count 5.03 X10*6/uL (4.60-5.80); Red Cell Distribution Width 12.7 % (11.0-16.0); White Blood Count 4.9 X10*3/uL (4.8-10.8)
[2024-02-21 04:10] LABS: Prothrombin Time 11.6 SEC (11.1-13.3)
[2024-02-21 04:17] LABS: Alanine Aminotransferase 22 U/L (0-40); Alkaline Phosphatase 47 U/L (39-117); Anion Gap 12 (12-20); Aspartate Amino Transferase 20 U/L (5-37); Bilirubin Direct 0.2 mg/dL (0.0-0.5); Bilirubin Total 0.4 mg/dL (0.0-1.0); Blood Urea Nitrogen 25 mg/dL (9-16); Carbon Dioxide 28 mmol/L (22-29); Chloride 105 mmol/L (96-108); Creatinine Clr Calc Pharmacy 102.2; Estimated Glomerular Filt Rate > 60; Glucose Random 132 mg/dL (60-115); Potassium 3.8 mmol/L (3.3-5.1); Sodium 141 mmol/L (135-145); Total Protein 6.5 g/dL (6.5-8.0)
[2024-02-21] MEDS: Meclizine HCl 25 MG TABLET PO (04:29)
--- NOTE | 2024-02-21 04:36 | ED.DIZZY ---
HPI - Dizziness General Chief Complaint: Dizziness Stated Complaint: vertigo Time Seen by Provider: 02/21/24 03:52 Source: patient Mode of arrival: ambulatory History of Present Illness ED Provider: Dr Pabon HPI Narrative: 53-year-old male with history of BPH but otherwise healthy, reports 2 weeks ago had a viral illness and then last night approximately 8-9 p.m. felt a little bit dizzy, did not think anything of it, but then got up this morning and felt significant amount of vertigo, worse on flexion and extension of the neck but still present with looking over the right or left shoulder, otherwise denies any visual/speech changes, denies any unilateral numbness/tingling/weakness and otherwise denies any unsteady gait but does have significant vertigo that stops with no movement. Denies any tinnitus. Related Data Previous Rx's ?Medication ?Instructions ?Recorded levofloxacin 500 mg tablet 500 mg PO DAILY 4 weeks #28 tabs 07/01/23 finasteride 5 mg tablet 5 mg PO DAILY 90 days #90 tabs 12/13/23 tamsulosin 0.4 mg capsule 0.4 mg PO BEDTIME 90 days #90 caps 12/13/23 Allergies Allergy/AdvReac Type Severity Reaction Status Date / Time No Known Allergies Allergy Verified 02/21/24 03:40 Review of Systems Review of Systems: Pertinent positives and negatives as stated in HPI [facility] Past Medical History Source: nursing notes reviewed Medical History History of asthma Social History Social History Patient Tobacco Use Status: Never used Tobacco Advance Directives: Yes Advance Directives Information Provided: Yes Advance Directives on File: No Do you have a plan to hurt others: No Plan Physical Exam Vital Signs: Vital Signs: Last Vital Signs Temp 97.3 F 02/21/24 06:00 Pulse 67 02/21/24 06:00 Resp 12 02/21/24 06:00 BP 119/72 02/21/24 06:00 Pulse Ox 99 02/21/24 06:00 O2 Del Method Room Air 02/21/24 06:00 BMI result Body Mass Index 22.7 VITAL SIGNS: Reviewed. GENERAL: Well developed, well nourished, in no acute distress. HEAD: Normocephalic/atraumatic EYES: PERRLA, EOMI intact without pain, no nystagmus EARS: Ext canals without abnormality, TMs non-bulging and non-erythematous NOSE: Nares patent bilateral OROPHARYNX: no oral lesions noted, posterior pharynx clear and non-erythematous without noted tonsillar enlargement/erythema/exudates NECK: Supple, no adenopathy LUNGS: Normal breath sounds. No adventitious sounds or accessory muscle use. SpO2<100> CARDIOVASCULAR: Regular rate and rhythm without noted murmurs ABDOMEN: Soft, non-tender, non-distended with bowel sounds. MUSCULOSKELETAL: No tenderness, deformities, or effusions noted on gross inspection. EXTREMITIES: No cyanosis, clubbing or edema. SKIN: Inspection of the skin reveals no rashes NEUROLOGIC: Alert and oriented x 4. Strength and sensation to light touch were grossly intact x 4, no facial asymmetry, no pronator drift, cranial nerves 2-12 are grossly intact, heel to goyal is intact, Romberg's is negative, do not appreciate any nystagmus. Medications Administered Discontinued Medications Generic Name Dose Route Start Last Admin Trade Name Freq PRN Reason Stop Dose Admin Iohexol 85 ml 02/21/24 05:22 02/21/24 05:24 Iohexol 350 Mg/Ml 100 Ml Infus..Btl IV 02/21/24 05:23 85 ml ONCE ONE Administration Meclizine HCl 25 mg 02/21/24 04:16 02/21/24 04:29 Meclizine Hcl 25 Mg Tablet PO 02/21/24 04:17 25 mg ONCE ONE Administration Medical Decision Making Medical Decision Making [facility] Narrative: 53-year-old male with history and clinical presentation, DDX: Labyrinthitis, BPPV, much lower clinical suspicion for any posterior CVA symptoms I reviewed all investigations and hematologic indices are negative for leukocytosis/left shift/anemia or thrombocytopenia. Coagulation studies are within normal limits. Chemistry indices negative for KELLY/electrolyte or liver enzyme derangements. CT angio of head and neck negative for acute intracranial abnormality, no large vessel occlusions/aneurysm or dissection appreciated and mild atherosclerotic disease of internal carotid. Patient provided with 25 mg of meclizine and on re-evaluation still reports persistent dizziness. After discussing with the patient the decision is made to proceed with MRI. Signed out to Dr Fowler - f/u MRI to r/o posterior stroke - Trop and d-dimer Differential Diagnosis Differential Diagnoses: The differential diagnosis associated with the presentation includes Please see the discussion above Admission/Observation Consideration of admission/observation: Escalation of care including admission/observation considered Please see the discussion above Lab Data MDM Lab Attestation statement: I reviewed the patient's lab results. Please see the discussion above 02/21/24 03:53 02/21/24 03:53 Labs: Lab Results 02/21/24 Range/Units 03:53 WBC 4.9 (4.8-10.8) X10*3/uL RBC 5.03 (4.60-5.80) X10*6/uL Hgb 15.6 (14.0-18.0) g/dl Hct 44.9 (42.0-52.0) % MCV 89.3 (80.0-98.0) fL MCH 31.0 (27.0-33.0) pg MCHC 34.7 (31.0-36.0) g/dl RDW 12.7 (11.0-16.0) % Plt Count 194 D (160-400) X10*3/uL MPV 10.3 (9.4-12.4) fL Immature Gran % (Auto) 0.2 (0.0-0.4) % Neut % (Auto) 46.3 (45-73) % Lymph % (Auto) 42.0 H (20-40) % Brown % (Auto) 8.5 (2-11) % Eos % (Auto) 2.6 (0-4) % Baso % (Auto) 0.4 (0-2) % Lymph # (Auto) 2.1 (1.2-4.9) X10*3/uL Brown # (Auto) 0.4 (0.1-1.2) X10*3/uL Eos # (Auto) 0.1 (0.0-0.4) X10*3/uL Baso # (Auto) 0.0 (0.0-0.2) X10*3/uL Abs Immat Gran (auto) 0.01 (0.00-0.03) X10*3/uL Absolute Neuts (auto) 2.3 (2.0-8.3) x10*3/uL Absolute Nucleated RBC 0.000 (0.0-0.012) X10*3/uL Nucleated RBC % (auto) 0.0 (0.0-0.2) /100WBC PT 11.6 (11.1-13.3) SEC INR 1.0 (0.9-1.1) Sodium 141 (135-145) mmol/L Potassium 3.8 (3.3-5.1) mmol/L Chloride 105 (96-108) mmol/L Carbon Dioxide 28 (22-29) mmol/L Anion Gap 12 (12-20) BUN 25 H (9-16) mg/dL Creatinine 0.91 (0.5-1.4) mg/dL Estim Creat Clear Calc 102.2 Estimated GFR > 60 Random Glucose 132 H (60-115) mg/dL Calcium 9.0 (8.4-10.2) mg/dL Total Bilirubin 0.4 (0.0-1.0) mg/dL Direct Bilirubin 0.2 (0.0-0.5) mg/dL AST 20 (5-37) U/L ALT 22 (0-40) U/L Alkaline Phosphatase 47 (39-117) U/L Total Protein 6.5 (6.5-8.0) g/dL Albumin 4.0 (3.5-5.0) g/dL Independent Interpretation I performed an independent interpretation of an: EKG Interpretation: Normal sinus rhythm, HR-71, no STEMI, VT/QTC are within normal limits, QRS-128, no EKG for comparison, rightward axis noted. Critical Care Time Critical Care Time Critical Care Time: Yes Total Critical Care Time: 45 Attestation: I personally attest to this time spent taking care of the patient. Discharge Plan Discharge Clinical Impression: Dizziness Patient Disposition: Still a Patient Prescriptions: No Action finasteride 5 mg tablet 5 mg PO DAILY 90 Days Qty: 90 1RF tamsulosin 0.4 mg capsule 0.4 mg PO BEDTIME 90 Days Qty: 90 1RF levofloxacin 500 mg tablet 500 mg PO DAILY 28 Days Qty: 28 0RF Print Language: Japanese
[2024-02-21] MEDS: iohexoL 350 MG/ML 100 ML INFUS..BTL 85 ML IV (05:24)
[2024-02-21 06:00] VITALS: BP 119/72; PULSE 67; RESP 12; TEMP 36.3; O2SAT 99
[2024-02-21 07:13] LABS: D Dimer High Sensitivity < 150 NG/ML
[2024-02-21] MEDS: Aspirin 81 MG TAB.CHEW 324 MG PO (07:16)
[2024-02-21 07:24] LABS: Troponin-I High Sensitivity < 2.7 ng/L (<3.5-35.0)
[2024-02-21 11:04] VITALS: BP 126/72; PULSE 67; RESP 18; TEMP 36.8; O2SAT 99
== END 2024-02-21 11:05 | disposition home or self-care (01) ==
PROVIDERS: Student in an Organized Health Care Education/Training Program; Emergency Provider Emergency Medicine
DX: H81.20 Vestibular neuronitis, unspecified ear (principal)
CPT/HCPCS: 36415; 70496; 70498; 70551; 80048; 80076; 84484; 85025; 85379; 85610; 93005; 99284; 99285; Q9967

== ENCOUNTER → 2024-02-21 03:43 | Outpatient (BNV) | payer OTHER, SELFPAY | PROVIDERS: Emergency Provider Emergency Medicine; Visit Provider Internal Medicine | DX: I45.4 Nonspecific intraventricular block (principal) | CPT/HCPCS: 93010 ==

== ENCOUNTER 2024-06-09 07:19 | Outpatient (REF) | payer OTHER, SELFPAY ==
[2024-06-09 08:46] LABS: PSA,Total (Free>4and<10) 3.01 ng/mL (0.00-4.00)
== END 2024-06-09 07:20 | disposition home or self-care (01) ==
LOC: HO.LAB 07:19
PROVIDERS: Visit Provider Urology
DX: R97.20 Elevated prostate specific antigen [PSA] (principal); Z12.5 Encounter for screening for malignant neoplasm of prostate
CPT/HCPCS: 36415; 84153

== ENCOUNTER 2024-06-13 08:28 | Outpatient (AMB) | payer OTHER, SELFPAY ==
--- NOTE | 2024-06-13 08:32 | A.OFFVIS_ITS ---
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 He is seen for the following urologic conditions - prostatitis - outlet obstruction - elevated PSA Telemedicine Evaluation 15 min Consultation [employer]abe Video Has persistent nocturia Trial Hi Discussed PSA Six-month follow-up check Ultrasound 60 g prostate, effective emptying Will check in 6 months. Target PSA based on size and use of finasteride is 3.5. He understands likely will require prostate procedure at some point in future. Effective bladder emptying and good stream. Does have storage symptoms was then urgency and nocturia. Urinary retention Episode of urinary retention 07/02 Likely trigger prostatitis PSA 07/02 82, 09/01 7.1, 12/01 4.7, 06/03 3.0 Imaging 07/02 CT Moderate to significant prostate enlargement with bladder wall thickening - CT 60 gm Responded to combination tamsulosin and finasteride PFSH Medical History History of asthma Social History Patient Tobacco Use Status: Never used Tobacco Review of Systems Const All systems reviewed & are unremarkable except as noted in HPI and below Reports no additional complaints Resp Reports no additional complaints GI Reports no additional complaints Reports as per HPI Musc Reports no additional complaints Physical Exam Telemedicine evaluation Appropriate responses Regular breathing rate and rhythm HEENT Head: Yes normal to inspection Ears: hearing grossly normal bilaterally Eyes General: appearance normal, both eyes and all related structures Neck Neck: Yes normal visual inspection Chest Chest palpation & inspection: normal inspection of the chest Resp Effort & Inspection: normal respiratory effort and able to speak in complete sentences Telehealth Telehealth Telehealth Platform: [employer] Location of provider rendering services: practice address Location of patient: address on file Patient Identification confirmed using: Name, : Yes Telehealth method: video Patient verbally consented to treatment: Yes Patient verbally consented to billing insurance company: Yes Patient informed of any privacy concerns related to visit: Yes Minutes spent on Phone/Video with Pt.: 20 Assessment & Plan Assessment & Plan (1) Nocturia more than twice per night: Code(s): R35.1 - Nocturia Category: Medical (2) Prostatitis: Code(s): N41.9 - Inflammatory disease of prostate, unspecified Category: Medical (3) Elevated PSA: Code(s): R97.20 - Elevated prostate specific antigen [PSA] Category: Medical Plan Trial Cialis Orders: Orders Prostate Specific Antigen 6 Months R97.20 - Elevated prostate specific antigen [PSA] Medications: New tadalafil 2.5 mg PO DAILY 30 days 30 tabs 1RF nocturia R35.1 - Nocturia Refilled tamsulosin 0.4 mg PO BEDTIME 90 days 90 caps 1RF N32.0 - Bladder-neck obstruction finasteride 5 mg PO DAILY 90 days 90 tabs 1RF N32.0 - Bladder-neck obstruction Patient Instructions: Imaging studies, laboratory and physical exam results were discussed and reviewed in detail. No major barriers to patient understanding were identified. An opportunity to ask questions regarding the treatment plan was provided. All questions were answered. The patient expressed understanding and agreement with the above treatment plan. The patient is aware they should contact our office by phone for worsening of their current condition or the appearance of new urologic symptoms. Compliance is encouraged with any medications and followup testing that is ordered. It is a privilege to participate in the urologic care of your patient. If you have any questions or concerns regarding treatment for the above conditions, or other urologic issues, please do not hesitate to contact me. The office telephone contact is [phone]. This note is constructed using voice recognition software. While every effort has been made to ensure accuracy patent lawyer errors may have been included. Yours sincerely, Dr Dakotah Javed MD, JAJA [facility] - Urology Providers of Expert, Compassionate Care for the Genitourinary System Coding Level of Care Code Tele Est Pt Level 4 (10235) Diagnoses Nocturia more than twice per night R35.1 Prostatitis N41.9 Elevated PSA R97.20
== END 2024-06-13 09:16 | disposition home or self-care (01) ==
LOC: HO.HUSH 08:29
PROVIDERS: Visit Provider Urology
DX: R35.1 Nocturia (principal); N41.9 Inflammatory disease of prostate, unspecified; R97.20 Elevated prostate specific antigen [PSA]
CPT/HCPCS: 99214

== ENCOUNTER → 2024-06-13 08:28 | Outpatient (BNVA) | payer OTHER, SELFPAY | PROVIDERS: Visit Provider Urology ==

== ENCOUNTER 2024-12-09 07:15 | Outpatient (REF) | payer OTHER, SELFPAY ==
[2024-12-09 08:58] LABS: Prostate Specific Antigen 2.77 ng/mL (<0.05-4.0)
== END 2024-12-09 07:16 | disposition home or self-care (01) ==
LOC: HO.LAB 07:15
PROVIDERS: Visit Provider Urology
DX: R97.20 Elevated prostate specific antigen [PSA] (principal); Z12.5 Encounter for screening for malignant neoplasm of prostate
CPT/HCPCS: 36415; 84153

== ENCOUNTER 2024-12-12 08:39 | Outpatient (AMB) | payer OTHER, SELFPAY ==
--- NOTE | 2024-12-12 08:40 | A.OFFVIS_ITS ---
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 He is seen for the following urologic conditions - prostatitis - outlet obstruction - elevated PSA Telemedicine Evaluation 15 min Consultation [employer] Gabe Video Has been on every other day Cialis for nocturia control Discussed potential for prostate MRI Will adjust finasteride every other day Increased Cialis 2 daily for trial of improved bladder control Ultrasound 60 g prostate, effective emptying Will check in 6 months. Target PSA based on size and use of finasteride is 3.5. He understands likely will require prostate procedure at some point in future. Effective bladder emptying and good stream. Does have storage symptoms was then urgency and nocturia. Urinary retention Episode of urinary retention 07/02 Likely trigger prostatitis PSA 07/02 82, 09/01 7.1, 12/01 4.7, 06/03 3.0, 01/02 2.8 Imaging 07/02 CT Moderate to significant prostate enlargement with bladder wall thickening - CT 60 gm PFSH Medical History History of asthma Social History Patient Tobacco Use Status: Never used Tobacco Review of Systems Const All systems reviewed & are unremarkable except as noted in HPI and below Reports no additional complaints Resp Reports no additional complaints GI Reports no additional complaints Reports as per HPI Musc Reports no additional complaints Physical Exam Telemedicine evaluation Appropriate responses Regular breathing rate and rhythm HEENT Head: Yes normal to inspection Ears: hearing grossly normal bilaterally Eyes General: appearance normal, both eyes and all related structures Neck Neck: Yes normal visual inspection Chest Chest palpation & inspection: normal inspection of the chest Resp Effort & Inspection: normal respiratory effort and able to speak in complete sentences Telehealth Telehealth Telehealth Platform: [employer] Location of provider rendering services: practice address Location of patient: address on file Patient Identification confirmed using: Name, : Yes Telehealth method: video Patient verbally consented to treatment: Yes Patient verbally consented to billing insurance company: Yes Patient informed of any privacy concerns related to visit: Yes Minutes spent on Phone/Video with Pt.: 15 Assessment & Plan Assessment & Plan (1) Bladder outlet obstruction: Code(s): N32.0 - Bladder-neck obstruction Category: Medical (2) Elevated PSA: Code(s): R97.20 - Elevated prostate specific antigen [PSA] Category: Medical (3) Nocturia more than twice per night: Code(s): R35.1 - Nocturia Category: Medical Plan Six-month follow-up PSA Orders: Orders Prostate Specific Antigen 6 Months R97.20 - Elevated prostate specific antigen [PSA] Medications: Discontinued tamsulosin Discontinued Reason: Doctor's Order 0.4 mg PO BEDTIME 90 days 90 caps 1RF N32.0 - Bladder-neck obstruction Patient Instructions: This note is constructed using voice recognition software. While every effort has been made to ensure accuracy driver's education instructor errors may have been included. Imaging studies, laboratory and physical exam results were discussed and reviewed in detail. No major barriers to patient understanding were identified. An opportunity to ask questions regarding the treatment plan was provided. All questions were answered. The patient expressed understanding and agreement with the above treatment plan. The patient is aware they should contact our office by phone for worsening of their current condition or the appearance of new urologic symptoms. Compliance is encouraged with any medications and followup testing that is ordered. It is a privilege to participate in the urologic care of your patient. If you have any questions or concerns regarding treatment for the above conditions, or other urologic issues, please do not hesitate to contact me. The office telephone contact is [phone]. Sincerely, Dr Dakotah Javed MD, JAJA [facility] - Urology Compassionate Specialist Care for the Genitourinary System Coding Level of Care Code Tele Est Pt Level 3 (14275) Diagnoses Bladder outlet obstruction N32.0 Elevated PSA R97.20 Nocturia more than twice per night R35.1
== END 2024-12-12 09:25 | disposition home or self-care (01) ==
LOC: HO.HUSH 08:39
PROVIDERS: Visit Provider Urology
DX: N32.0 Bladder-neck obstruction (principal); R97.20 Elevated prostate specific antigen [PSA]; R35.1 Nocturia
CPT/HCPCS: 99213

== ENCOUNTER 2025-07-02 07:02 | Outpatient (REF) | payer OTHER, SELFPAY ==
[2025-07-02 08:27] LABS: Prostate Specific Antigen 2.55 ng/mL (<0.05-4.0)
== END 2025-07-02 07:03 | disposition home or self-care (01) ==
LOC: HO.LAB 07:02
PROVIDERS: Visit Provider Urology
DX: R97.20 Elevated prostate specific antigen [PSA] (principal); Z12.5 Encounter for screening for malignant neoplasm of prostate
CPT/HCPCS: 36415; 84153

== ENCOUNTER 2025-07-10 12:48 | Outpatient (AMB) | payer OTHER, SELFPAY ==
--- NOTE | 2025-07-10 12:48 | A.OFFVIS_ITS ---
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 He is seen for the following urologic conditions - prostatitis - outlet obstruction - elevated PSA Telemedicine Evaluation 15 min Consultation [employer]abe [employer] Has been on finasteride every other day Has been on every other day tadalafil for nocturia control Previously Discussed potential for prostate MRI Ultrasound 60 g prostate, effective emptying Will check in 6 months. Target PSA based on size and use of finasteride is 3.5. He understands likely will require prostate procedure at some point in future. Effective bladder emptying and good stream. Twelve month follow-up PSA Urinary retention Episode of urinary retention 07/02 Likely trigger prostatitis PSA 07/02 82, 09/01 7.1, 12/01 4.7, 06/03 3.0, 01/02 2.8, 07/04 2.5 Imaging 07/02 CT Moderate to significant prostate enlargement with bladder wall thickening - CT 60 gm [facility] Medical History History of asthma Social History Patient Tobacco Use Status: Never used Tobacco Review of Systems Const All systems reviewed & are unremarkable except as noted in HPI and below Reports no additional complaints Resp Reports no additional complaints GI Reports no additional complaints Reports as per HPI Musc Reports no additional complaints Physical Exam Telemedicine evaluation Appropriate responses Regular breathing rate and rhythm HEENT Head: Yes normal to inspection Ears: hearing grossly normal bilaterally Eyes General: appearance normal, both eyes and all related structures Neck Neck: Yes normal visual inspection Chest Chest palpation & inspection: normal inspection of the chest Resp Effort & Inspection: normal respiratory effort and able to speak in complete sentences Telehealth Telehealth Telehealth Platform: [employer] Location of provider rendering services: practice address Location of patient: address on file Patient Identification confirmed using: Name, : Yes Telehealth method: video Patient verbally consented to treatment: Yes Patient verbally consented to billing insurance company: Yes Patient informed of any privacy concerns related to visit: Yes Minutes spent on Phone/Video with Pt.: 15 Assessment & Plan Assessment & Plan (1) Bladder outlet obstruction: Code(s): N32.0 - Bladder-neck obstruction Category: Medical (2) Elevated PSA: Code(s): R97.20 - Elevated prostate specific antigen [PSA] Category: Medical (3) Prostatitis: Code(s): N41.9 - Inflammatory disease of prostate, unspecified Category: Medical Plan One year follow-up PSA Continue current medications finasteride every other day, daily tadalafil Orders: Orders Prostate Specific Antigen 12 Months R97.20 - Elevated prostate specific antigen [PSA] Medications: Refilled finasteride 5 mg PO DAILY 90 tabs 2RF 90 days N32.0 - Bladder-neck obstruction tadalafil 5 mg PO DAILY 90 tabs 3RF nocturia 90 days R35.1 - Nocturia Discontinued levofloxacin Discontinued Reason: Patient Completed Course 500 mg PO DAILY 4 weeks 28 tabs 0RF meclizine Discontinued Reason: Patient Completed Course 25 mg PO TID PRN 30 tabs 0RF dizziness prednisone see taper instructions 60mg daily on day 1 through 5, 40mg on day 6, 30mg on day 7, 20mg on day 8, 10mg on day 9 and 5mg on day 10. Discontinued Reason: Doctor's Order 10 mg PO DIRECTED 41 tabs 0RF Patient Instructions: This note is constructed using voice recognition software. While every effort has been made to ensure accuracy vp platforms errors may have been included. Imaging studies, laboratory and physical exam results were discussed and reviewed in detail. No major barriers to patient understanding were identified. An opportunity to ask questions regarding the treatment plan was provided. All questions were answered. The patient expressed understanding and agreement with the above treatment plan. The patient is aware they should contact our office by phone for worsening of their current condition or the appearance of new urologic symptoms. Compliance is encouraged with any medications and followup testing that is ordered. It is a privilege to participate in the urologic care of your patient. If you have any questions or concerns regarding treatment for the above conditions, or other urologic issues, please do not hesitate to contact me. The office telephone contact is [phone]. Sincerely, Dr Dakotah Javed MD, JAJA [facility] - Urology Compassionate Specialist Care for the Genitourinary System Coding Level of Care Code Tele Est Pt Level 3 (20853) Complex EM visit Add On G2211 Diagnoses Bladder outlet obstruction N32.0 Elevated PSA R97.20 Prostatitis N41.9
== END 2025-07-10 15:29 | disposition home or self-care (01) ==
LOC: HO.HUSH 12:48
PROVIDERS: Visit Provider Urology
DX: N32.0 Bladder-neck obstruction (principal); R97.20 Elevated prostate specific antigen [PSA]; N41.9 Inflammatory disease of prostate, unspecified
CPT/HCPCS: 99213